=== PATIENT | female | born 1935 | race Caucasian/White ===

== ENCOUNTER 2020-10-18 15:50 | Emergency (ER) | payer OTHER, BC ==
[2020-10-18 16:42] VITALS: BP 135/63; PULSE 88; TEMP 97.7; BMI 26.6
[2020-10-18 16:54] LABS: BASO % 0.4 % (0-2.0); HEMATOCRIT 30.5 % (32.4-45.2); LYMPH % 5.9 % (8-40); MCH 29.8 pg (25.7-33.7); MCHC 32.6 g/dl (32.0-36.0); MEAN CELL VOLUME 91.4 fl (80-96); MEAN PLT VOLUME 8.4 fl (7.5-11.1); MONO % 5.8 % (3.8-10.2); NEUT % 87.9 % (42.8-82.8); PLATELET COUNT 200 10^3/uL (134-434); RBC 3.34 M/mm3 (3.60-5.2); RDW 14.2 % (11.6-15.6); WHITE BLOOD COUNT 9.4 K/mm3 (4.0-10.8)
[2020-10-18] MEDS ORDERED: SODIUM CHLORIDE 500 ML IV STA (16:56)
[2020-10-18 17:10] LABS: ALBUMIN 3.7 g/dl (3.4-5.0); ALK PHOS 51 U/L (45-117); ANION GAP 8 MMOL/L (8-16); BILIRUBIN,TOTAL 0.5 mg/dl (0.2-1); CALCIUM 9.1 mg/dl (8.5-10); CHLORIDE 103 mmol/L (98-107); CO2 22 mmol/L (21-32); CREATININE 0.9 mg/dl (0.55-1.3); GLUCOSE,RANDOM 155 mg/dl (74-106); SGOT/AST 21 U/L (15-37); SGPT/ALT 15 U/L (13-61); SODIUM 133 mmol/L (136-145); TOT PROT 6.9 g/dl (6.4-8.2)
[2020-10-18 18:25] LABS: EPITHELIAL CELLS FEW /hpf
== END 2020-10-18 18:46 | disposition home or self-care (01) ==
LOC: FER 15:50
PROC: 3E0337Z Introduction of Electrolytic and Water Balance Substance into Peripheral Vein, Percutaneous Approach (ICD-10-PCS; principal; 2020-10-18)
DX: R55 Syncope and collapse (principal)
CPT/HCPCS: 36415; 71045-TC-FY; 80053; 81003; 81015; 82550; 84484; 85025; 93005; 99284-25